=== PATIENT | male | born 2000 | race Two or more races ===

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

== ENCOUNTER → 2019-06-21 | Emergency (ER) | payer SELFPAY ==
[~2019-06-21] VITALS: Ht 177.8 cm; Wt 113.4 kg
[~2019-06-21] MED LIST changes: +INDOMETHACIN50 MG PO; +Ketorolac 30mg Inj IM ONE
[2019-06-21 11:57] VITALS: BP 160/110
--- NOTE | 2019-06-21 12:12 | NUR ---
ED Nurse Note: Holly COUCH at bedside.
--- NOTE | 2019-06-21 12:46 | Emergency Room Report ---
History of Present Illness General Chief Complaint: Pain Source: Patient Present Illness HPI 18-year-old male with no significant past medical history here complaining of intermittent right big toe pain for several months. Denies any fall or injury. Reports that he usually consumes a lot of red meat and alcohol. Toe is warm to touch. Has not taken medication for symptom relief. Denies all other injuries. Denies pain radiation, tingling numbness. Allergies: Coded Allergies: No Known Allergies (Unverified , 09/10/18) Patient History Past Medical History: see triage record Past Surgical History: none Pertinent Family History: none Immunizations: UTD Reviewed Nursing Documentation: PMH: Agreed; PSxH: Agreed Nursing Documentation-PMH Past Medical History: No Stated History Review of Systems All Other Systems: negative except mentioned in HPI Physical Exam Vital Signs Date Time Temp Pulse Resp B/P (MAP) Pulse Ox O2 Delivery O2 Flow Rate FiO2 06/21/19 11:57 97.9 75 17 160/110 (127) 99 Room Air Sp02 EP Interpretation: reviewed, normal General Appearance: no apparent distress, alert, GCS 15, non-toxic Head: normocephalic, atraumatic Eyes: bilateral eye normal inspection, bilateral eye PERRL ENT: hearing grossly normal, normal pharynx, no angioedema, normal voice Neck: full range of motion, supple, supple/symm/no masses Respiratory: chest non-tender, lungs clear, normal breath sounds, no rhonchi, no retraction, no wheezing, speaking full sentences Cardiovascular #1: regular rate, rhythm, no edema, no murmur Cardiovascular #2: 2+ dorsalis pedis (R), 2+ dorsalis pedis (L) Gastrointestinal: soft Rectal: deferred Genitourinary: no CVA tenderness Musculoskeletal: back normal, no calf tenderness, pelvis stable, Naz's Sign negative, non-tender, swelling - Right big toe Neurologic: alert, motor strength/tone normal, oriented x3, sensory intact, responsive, speech normal Psychiatric: judgement/insight normal, memory normal, mood/affect normal, no suicidal/homicidal ideation Skin: no rash Lymphatic: no adenopathy Medical Decision Making PA Attestation All my diagnosis and treatment plans were reviewed ad discussed with my supervising physician Dr. Deleon Diagnostic Impression: Primary Impression: Gout of big toe ER Course 18-year-old male with no significant past medical history here complaining of intermittent right big toe pain for several months. Denies any fall or injury. Reports that he usually consumes a lot of red meat and alcohol. Toe is warm to touch. Has not taken medication for symptom relief. Denies all other injuries. Denies pain radiation, tingling numbness. Ddx considered but are not limited to : Cellulitis, fracture versus sprain versus contusion versus gout, superficial infection, abscess Vital signs: are WNL, pt. is afebrile H&PE are most consistent with: Gout of big toe ORDERS: Toe x-ray, indomethacin ED INTERVENTIONS: Toradol DISCHARGE: At this time pt. is stable for d/c to home. Will provide printed patient care instructions, and any necessary prescriptions. Care plan and follow up instructions have been discussed with the patient prior to discharge. Follow-up with primary care provider for uric acid level testing, avoid eating food that contains a low purine such as alcohol as well as red meat. If worsening symptoms return to emergency room Other X-Ray Diagnostic Results Other X-Ray Diagnostic Results : X-Ray ordered: Big toe # of Views/Limited Vs Complete: 3 View Indication: Swelling EP Interpretation: Yes KHOA Xray: Interpretation reviewed, by supervising MD, and agrees with findings. Interpretation: no dislocation, no soft tissue swelling, no fractures Impression: No acute disease Electronically Signed by: Holly Bledsoe PA-C Last Vital Signs Date Time Temp Pulse Resp B/P (MAP) Pulse Ox O2 Delivery O2 Flow Rate FiO2 06/21/19 11:57 97.9 75 17 160/110 (127) 99 Room Air Status: improved Disposition: HOME, SELF-CARE Condition: Stable Scripts Indomethacin (INDOMETHACIN) 50 Mg Capsule 50 MG PO TID for 5 Days, #15 CAP Prov: Holly Daily 06/21/19 Referrals: NOT CHOSEN IPA/MD,REFERRING (PCP) Patient Instructions: Gout, [id number] Additional Instructions: Take medication as directed, follow-up with your primary care provider, reduce purine intake, avoid drinking alcohol in the right knee, have your primary doctor test for uric acid levels. If worsening symptoms return emergency room Holly Daily Jun 21, 2019 12:46
--- NOTE | 2019-06-21 13:00 | NUR ---
ED Nurse Note: xray at the bedside
--- NOTE | 2019-06-21 15:30 | Diagnostic Imaging Report ---
Indication: Toe pain Technique: 3 views of the right toes Comparison: Findings: No acute fractures. No dislocations. The joint spaces are preserved. No radiopaque foreign body Impression: Negative
== END | disposition home or self-care (01) ==
LOC: EMR 12:30
DX: M10.9 Gout, unspecified (principal)
CPT/HCPCS: 73660; 96372; 99283; J1885